=== PATIENT | female | born 1995 ===

== ENCOUNTER 2020-09-06 08:52 | Outpatient (REF) | payer SELFPAY ==
[2020-09-06 11:44] LABS: SARS COV2 IgG Negative (Negative)
== END 2020-09-06 08:53 | disposition home or self-care (01) ==
LOC: HO.LNC 08:52
PROVIDERS: Visit Provider Pathology Anatomic Pathology & Clinical Pathology
DX: Z13.89 Encounter for screening for other disorder (principal)
CPT/HCPCS: 36415; 86769

== ENCOUNTER 2021-07-31 10:29 | Outpatient (REF) | payer OTHER, SELFPAY ==
[2021-07-31 11:56] LABS: COVID-19 Test Negative (Negative)
== END 2021-07-31 10:30 | disposition home or self-care (01) ==
LOC: HO.LAB 10:29
PROVIDERS: Visit Provider Internal Medicine
DX: Z20.822 Contact with and (suspected) exposure to COVID-19 (principal)
CPT/HCPCS: 36415; 87635; C9803